=== PATIENT | male | born 1950 | race Caucasian/White ===

== ENCOUNTER → 2016-10-06 | Outpatient (CLI) | payer OTHER ==
--- NOTE | 2016-10-06 18:51 | US ---
Ultrasound and Venous Duplex Doppler Study of Left Lower Extremity History: Palpable painful cord left inner thigh, history of DVT Technique: High frequency transducer was used for imaging and Doppler study of the veins of the lowe r extremity. Pulsed Doppler and color Doppler were utilized, along with various maneuvers to assess flow in the veins. Findings: There is superficial thrombosis of the greater saphenous vein which correlates to the painf ul cord. The deep veins of the lower extremity are normally compressible between the groin and the upper calf and have normal Doppler waveforms within them. No deep venous thrombosis is identified. No superficial phlebitis or Epstein cyst is identified. Impression: 1. Superficial greater saphenous vein thrombosis. 2. No evidence of deep vein thrombosis in the left lower extremity. Results called to Dr. Malina Thomson at 6:49 PM
== END ==
LOC: FIMAGING 17:30
PROVIDERS: ATTEND Internal Medicine
DX: I82.812 Embolism and thrombosis of superficial veins of left lower extremity (principal)

== ENCOUNTER → 2016-10-22 | Outpatient (CLI) | payer OTHER ==
--- NOTE | 2016-10-22 18:20 | US ---
Left Lower Extremity Upright Duplex Venous Insufficiency Evaluation Interventional Consult Relevant history: Patient is a hypercoagulable patient, who has sustained twice now superficial throm bophlebitis of the left lower extremity. I last saw him in December 2015, at which time his great saphen ous vein was partially occluded. He just went on a long plane ride, and the calf segment bulged up wi th acute clot. Ultrasound confirms thrombosis of superficial varicosities. I have asked the patient t o come back for a repeat venous insufficiency evaluation to assess status of the underlying venous hy pertension. Technique: Upright duplex ultrasound of the lower extremity was performed by myself, followed by disc ussion with the patient. Findings: Indeed, the great saphenous vein is now widely patent for the proximal 10 to 15 cm segment of it. The great saphenous vein shows reflux of 5 seconds. It measures 8 mm at the saphenofemoral radha ction, 8 mm at the proximal thigh, and then it is diminutive because of previous clot and resorption. There are some small tributaries that come off of it. However, at the proximal thigh, there is a dominant tributary that comes off of it that then subseque ntly contributes to varicosities along the distal thigh, and medial calf. It is varicose veins that c ome off of this tributary that this time has clotted. There is no deep system reflux at the common femoral or popliteal level. The calf veins in the deep a re pa tent and normal. The short saphenous vein is normal. There is a bridging branch between the great saphenous and lesser saphenous vein that traverses acros s the medial aspect of the mid calf, that also does not show reflux. This bridging vein measures 4 mm . There are smaller tributaries from the great saphenous vein that do not show reflux. There is a domin ant tributary at the knee from the great saphenous system that is superficially located that measures 6 mm, consistent with a varix. Impression: 1. What is now clotted is a dominant tributary that comes off of the great saphenous vein at the prox imal thigh, just above where it clotted off before. That clotted off segment is now resorbed. 2. 5 second reflux in an 8 mm great saphenous vein in the proximal thigh. 3. I think the patient will continue to develop additional tributaries and varicosities that will con tinue to thrombose because of venous stasis and his hypercoagulability. Given the size of the great s aphenous vein and the degree of reflux, patient is at risk for one of these days developing a clot in the proximal great saphenous system, which can contribute to DVT and PE. 4. Because of the above reason, I think it would be prudent at this time to ablate the open segment o f the left great saphenous vein to prevent future spontaneous thrombosis and to decrease risk of DVT and PE. Comment: Patient is current on Eliquis, 5 mg in the morning and at night. I think we should perform t his procedure while he stays on Eliquis to prevent development of DVT. Patient does have a much highe r risk of developing DVT as a result of this treatment. Application of thigh high compression stocking would be very important posttreatment. Prescription wa s given to this patient today. All of the above are explained to the patient. Patient expressed full understanding and agreement to the approach at this time. I will have a discussion with Dr. Tonio Rivas regarding this prior to treatment. Thank you very muc h for your referral. Total [id number] consultation was 45 minutes.
== END ==
LOC: FIMAGING 07:40
PROVIDERS: ATTEND Radiology Diagnostic Radiology
DX: I82.812 Embolism and thrombosis of superficial veins of left lower extremity (principal)

== ENCOUNTER → 2016-11-25 | Day surgery (SDC) | payer OTHER ==
[~2016-11-25] MED LIST: LIDO/EPI 1% **for epidural** 30 ML SDV ONE; SODIUM TETRADECYL SULFATE 60 MG/2 ML VIAL IV ONE
== END | disposition home or self-care (01) ==
LOC: FIMAGING 12:36
PROVIDERS: ATTEND Radiology Diagnostic Radiology
DX: I80.00 Phlebitis and thrombophlebitis of superficial vessels of unspecified lower extremity (principal)

== ENCOUNTER → 2017-12-02 | Outpatient (CLI) | payer OTHER | LOC: FIMAGING 07:34 | PROVIDERS: ATTEND Radiology Diagnostic Radiology | DX: I83.892 Varicose veins of left lower extremity with other complications (principal) ==

== ENCOUNTER 2018-01-04 11:51 | Day surgery (SDC) | payer OTHER ==
[2018-01-04] MEDS ORDERED: PROTAMINE SULFATE 50 MG/5 ML VIAL IVP PRN (12:11)
[2018-01-04] MEDS ORDERED: ONDANSETRON 4 MG/2 ML VIAL IVP ONE (12:11)
[2018-01-04] MEDS ORDERED: NALOXONE HCL 0.4 MG/ML INJ IVP PRN (12:11)
[2018-01-04] MEDS ORDERED: fentaNYL 100 MCG/2 ML INJ IVP PRN (12:11)
[2018-01-04] MEDS ORDERED: FLUMAZENIL 0.5 MG/5 ML MDV IVP PRN (12:11)
[2018-01-04] MEDS ORDERED: MEPERIDINE 25 MG/ML SYR IVP PRN (12:11)
[2018-01-04] MEDS ORDERED: GLUCAGON HCL 1 MG VIAL IVP PRN (12:11)
[2018-01-04] MEDS ORDERED: MIDAZOLAM 2 MG/2 ML VIAL IVP PRN (12:11)
[2018-01-04] MEDS ORDERED: ALTEPLASE 2 MG VIAL IVP PRN (12:11)
[2018-01-04] MEDS ORDERED: HEPARIN 10,000 UNIT/10 ML MDV (1,000 UNIT/ML) IVP PRN (12:11)
[2018-01-04] MEDS ORDERED: NS 1,000 ML IV ONE (12:11)
[2018-01-04] MEDS ORDERED: ceFAZolin 2 GM/SWFI 2 GM/20 ML SYR IVP ONE (12:11)
[2018-01-04] MEDS ORDERED: LIDO/EPI 1% **for epidural** 30 ML SDV ONE (12:33)
[2018-01-04] MEDS ORDERED: SODIUM TETRADECYL SULFATE 3% 2 ML VIAL IV ONE (12:33)
--- NOTE | 2018-01-04 13:19 | PDGENHP ---
History & Physical Chief Complaint: RESIDUAL LLE VARICOSITIES History of Present Illness: S/P PREVIOUS ABLATION. RECURRENT VARICOSITIES Pertinent Past, Social, Family History: BOTH KNEE REPLACED. COLONOSCOPY. CYST REMOVAL. Relevant Physical Exam: ROPEY VARICOSE VEINS ON LEFT, CALF > CHIN Cardiorespiratory Assessment: RRR. CTA
--- NOTE | 2018-01-04 13:20 | PDPROPOC ---
Sedation Plan of Care Sedation Plan of Care: vital signs stable, mental status noted, patient educated of risks, benefits, alternatives, patient can tolerate sedation ASA Classification: ASA 1 Planned drugs: fentanyl, midazolam Mallampati Score: Class 1 Mallampati Reference Image: Patient passed 3-3-2 rule?: Yes
--- NOTE | 2018-01-04 15:02 | PDRADPN ---
Radiology Procedure Note Date of Procedure: 01/04/18 Radiologist: Joie White Anesthesia: IV Sedation Pre-op Diagnosis: LLE VARICOSITIES Post-op Diagnosis: LLE VARICOSITIES Indication: RESIDUAL VARICOSE VEINS Procedure: STAB PHLEBECTOMY, SCLEROTHERAPY Finding(s): 8 STAB PHLEBECTOMY DONE Inf/Abcess present in the surg proc area at time of surgery?: No Complications: NONE
[2018-01-04] MEDS ORDERED: HYDROCODONE/APAP 5/325 TAB PO PRN (15:04)
[2018-01-04] MEDS ORDERED: IBUPROFEN 200 MG TAB PO ONE (15:04)
[2018-01-04] MEDS ORDERED: ONDANSETRON DISINTEGRATING 4 MG TAB PO PRN (15:04)
[2018-01-04] MEDS ORDERED: ONDANSETRON 4 MG/2 ML VIAL IVP PRN (15:04)
[2018-01-04] MEDS ORDERED: NS 1,000 ML IV SCH (15:15)
[2018-01-04 17:13] VITALS: BP 114/74
== END 2018-01-04 16:40 | disposition home or self-care (01) ==
LOC: FIMAGING 11:51
PROVIDERS: ATTEND Radiology Diagnostic Radiology
DX: I83.892 Varicose veins of left lower extremity with other complications (principal); Z96.653 Presence of artificial knee joint, bilateral
CPT/HCPCS: J0690; J2250; J2310; J3010